=== PATIENT | female | born 1980 | race Caucasian/White ===

== ENCOUNTER 2018-01-30 21:59 | Emergency (ER) | payer SELFPAY ==
[2018-01-30 22:07] VITALS: BP 146/92; PULSE 68; RESP 17; TEMP 97.5; O2SAT 99
[2018-01-30] MEDS ORDERED: INFL100P (22:31)
[2018-01-30] MEDS ORDERED: CYAN1TAB24 (22:31)
--- NOTE | 2018-01-30 22:45 | PD ---
HPI Chief Complaint: Oral / Dental Pain or Problem Time Seen by Provider: 22:33 Travel History International Travel<30 days: No Contact w/Intl Traveler<30days: No Traveled to known affect area: No History of Present Illness HPI 37-year-old white female presents emergency department with complaints of dental pain. She states that she went to a dentist today and had x-rays performed. They informed her that she had a abscessed tooth. She states that her pain is localized to her left upper third molar. She was not given any antibiotics or pain medication. She states that she has Crohn's and takes Remicade and Ultram. She states that the Ultram is not helping. She would like something for pain. She denies any fever chills. Symptoms have been present now for the last 2-3 days. She denies any fever chills. No cough or congestion. No alleviating factors. No exacerbating factors. History Past Medical Histgory Narrative Medical Crohn's disease Tetanus Vaccination: < 5 Years LMP: 01/30/18 Past Surgical History Surgical History: No Previous Surgery Social History Alcohol Use: No Tobacco Use: Yes Allergies-Medications (Allergen,Severity, Reaction): Coded Allergies: codeine (Verified Allergy, Intermediate, vomiting, 01/30/18) morphine (Verified Allergy, Intermediate, rash, itching, 01/30/18) Reported Meds & Prescriptions Reported Meds & Active Scripts Active Reported B12 (Cyanocobalamin) 1,000 Mcg Tab Remicade Inj (Infliximab) 100 Mg Inj Review of Systems General / Constitutional: No: Fever Eyes: No: Visual changes HENT: Positive: Dental Difficulties, No: Headaches, Sore Throat Cardiovascular: No: Chest Pain or Discomfort Respiratory: No: Shortness of Breath Gastrointestinal: No: Abdominal Pain Genitourinary: No: Dysuria Musculoskeletal: No: Pain Skin: No Rash Neurologic: No: Weakness Psychiatric: No: Depression Endocrine: No: Polydipsia Hematologic/Lymphatic: No: Easy Bruising Physical Exam Narrative GENERAL: Well-developed, well-nourished in no acute distress. Nontoxic appearing. HEAD: Normocephalic, atraumatic. EYES: Pupils equal round and reactive. Extraocular motions intact. No scleral icterus. No injection or drainage. ENT: TMs clear without erythema. The external auditory canals clear. Nose: clear . Posterior pharynx is pink and moist. No tonsillar edema or exudate. Uvula midline. Airway patent. Patient has multiple dental caries throughout her mouth. She has a large area of decay on tooth #17. There is no gingival distention consistent with abscess. No pain on percussion. NECK: Trachea midline.Supple, nontender, moves head freely. No central bony tenderness or spasm. CARDIOVASCULAR: Regular rate and rhythm without murmurs, gallops, or rubs. RESPIRATORY: Clear to auscultation. Breath sounds equal bilaterally. No wheezes , rales, or rhonchi. GASTROINTESTINAL: Abdomen soft, non-tender, nondistended. No hepato-splenomegaly , or palpable masses. No guarding. EXTREMITIES: No clubbing, cyanosis, or edema. No joint tenderness, effusion, or edema noted. BACK: Nontender without deformity or crepitance. No flank tenderness. Data Data Last Documented VS Vital Signs Date Time Temp Pulse Resp B/P (MAP) Pulse Ox O2 Delivery O2 Flow Rate FiO2 01/30/18 22:07 97.5 68 17 146/92 (110) 99 MDM Medical Screen Exam Complete: Yes Emergency Medical Condition: No Differential Diagnosis MDM: Moderate Differential diagnoses: Dental abscess, dental caries, osteitis, cellulitis Narrative Course A medical screening exam was performed: At the time of evaluation the presenting medical condition was determined not to be of an emergent nature. The patient was given the option of receiving additional care, but declined. Patient was given options for additional community resources from which to obtain care. The Patient Has Been advised to seek medical attention for their presenting complaint. The patient has been advised to return to the ER at any time if an emergent condition develops. Primary Impression: Encounter for medical screening examination Condition: Charles Tamez Jan 30, 2018 22:45
== END 2018-01-30 22:53 | disposition left against medical advice (07) ==
LOC: NEPD 21:59
DX: K02.9 Dental caries, unspecified (principal); Z88.5 Allergy status to narcotic agent; Z72.0 Tobacco use; Z87.19 Personal history of other diseases of the digestive system
CPT/HCPCS: 99281